=== PATIENT | male | born 1970 | race African-American/Black ===

== ENCOUNTER 2016-05-19 10:10 | Observation (INO) | payer OTHER ==
[~2016-05-19] VITALS: Ht 172.7 cm; Wt 84.0 kg
[~2016-05-19 10:10] MED LIST: CEPH-460 PO; FLUT50SP EACH NARE; LANTINJ SQ; LISI10TA3 PO; SERT-129 PO
[2016-05-19 10:12] VITALS: BP 154/92; PULSE 92; RESP 20; TEMP 97.7; O2SAT 97
[2016-05-19 11:45] LABS: BLOOD, URINE NEG (NEG); GLUCOSE,URINE 1000 mg/dL (NEG); KETONE, URINE NEG (NEG); NITRITE,URINE NEG (NEG); URINE COLOR COLORLESS (YELLW/STRAW)
[2016-05-19 11:46] LABS: AUTOMATED NEUTROPHIL # 2.8 TH/MM3 (1.8-7.7); BASOPHIL % 0.4 % (0.0-2.0); EOSINOPHIL % 0.4 % (0.0-4.0); HEMATOCRIT 38.2 % (39.0-51.0); LYMPH % 28.3 % (9.0-44.0); LYMPHOCYTE # 1.3 TH/MM3 (1.0-4.8); MEAN CELL VOLUME 78.4 FL (80.0-100.0); MEAN CORPUSCULAR HEMOGLOBIN 23.7 PG (27.0-34.0); MEAN CORPUSCULAR HGB CONC 30.3 % (32.0-36.0); MONO % 10.6 % (0.0-8.0); NEUT % 60.3 % (16.0-70.0); PLATELET COUNT 195 TH/MM3 (150-450); RED BLOOD COUNT 4.87 MIL/MM3 (4.50-5.90); RED CELL DISTRIBUTION WIDTH 15.4 % (11.6-17.2); WHITE BLOOD COUNT 4.7 TH/MM3 (4.0-11.0)
[2016-05-19 11:47] LABS: COMMENT (UR) CULT NOT INDICATED; CULTURE IF INDICATED CULT NOT INDICATED
[2016-05-19 11:49] LABS: HEMO FLAGS AUTO DIFF
[2016-05-19] MEDS ORDERED: LANTUS2P SQ (11:55)
[2016-05-19] MEDS ORDERED: CEPH-460 PO (11:55)
--- NOTE | 2016-05-19 11:58 | PD ---
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 Patient states last night he went out to eat at a seafood restaurant with some friends and thinks he may have gotten food poisoning. States this morning when he woke up he felt nauseous and has had two episodes of emesis and two episodes of diarrhea. States his stomach feels uneasy but denies abdominal pain. He states his blood glucose was too high for his machine to register this morning which is what prompted him to come to the emergency department. States he uses Lantus 25 units at night and sliding scale Novolog during the day. He has not eaten or drank today which is why he has not used any insulin so far. Denies fever, chills, cough or cold symptoms, dysuria. No recent travel or sick contacts. No other complaints. PFSH Past Medical History Anemia: Yes Depression: Yes Diabetes: Yes Past Surgical History Eye Surgery: Yes (retinal detachment OS OD cataract) Social History Alcohol Use: No Tobacco Use: No Substance Use: No Allergies-Medications (Allergen,Severity, Reaction): Coded Allergies: No Known Allergies (Unverified , 05/19/16) Reported Meds & Prescriptions Reported Meds & Active Scripts Active Keflex (Cephalexin) 500 Mg Cap 500 Mg PO Q6H Reported Keflex (Cephalexin) 500 Mg Cap 500 Mg PO Q6H Lantus Inj (Insulin Glargine) 1,000 Unit/10 Ml Vial 30 Units SQ HS Lantus Solostar Pen Inj (Insulin Glargine) 300 Unit/3 Ml Pen 29 Units SQ HS Fluticasone Nasal [place] 50 Mcg/Act Naspr 50 Mcg EACH NARE BID 50 mcg/spray Sertraline (Sertraline HCl) 100 Mg Tab 100 Mg PO DAILY Lisinopril 10 Mg Tab 10 Mg PO DAILY Review of Systems Except as stated in HPI: all other systems reviewed are Neg Physical Exam Narrative GENERAL: Well-nourished and well-developed pleasant patient in no acute distress who is nontoxic appearing. SKIN: Warm and dry. HEAD: Normocephalic and atraumatic. EYES: No injection, drainage, or hyphema noted. PERRLA. EOMI. ENT: No nasal drainage noted. Oropharynx is clear. NECK: Supple and the trachea is midline. CARDIOVASCULAR: Regular rate and rhythm. RESPIRATORY: Breath sounds are equal bilaterally with no accessory muscle use, wheezing, rhonchi, or crackles. GASTROINTESTINAL: Bowel sounds hyperactive. Abdomen is soft, non-tender, and nondistended. No rebound tenderness or guarding. Negative McBurney's point. Negative Swann's sign. MUSCULOSKELETAL: No obvious deformities, swelling, cyanosis, or ecchymosis is present throughout the upper and lower extremities. Patient has full range of motion without any signs of neurovascular compromise. NEUROLOGICAL: Awake, alert, and oriented. Normal speech and gait. Cranial nerves are grossly intact. Data Data Last Documented VS Vital Signs Date Time Temp Pulse Resp B/P Pulse Ox O2 Delivery O2 Flow Rate FiO2 05/19/16 10:12 97.7 92 20 154/92 97 Room Air Orders Complete Blood Count With Diff (05/19/16 10:39) Comprehensive Metabolic Panel (05/19/16 10:39) Urinalysis - C+S If Indicated (05/19/16 10:39) Iv Access Insert/Monitor (05/19/16 10:39) Oxygen Administration (05/19/16 10:39) Oximetry (05/19/16 10:39) Lipase (05/19/16 10:39) Labs Laboratory Tests Test 05/19/16 10:54 White Blood Count 4.7 TH/MM3 Red Blood Count 4.87 MIL/MM3 Hemoglobin 11.6 GM/DL Hematocrit 38.2 % Mean Corpuscular Volume 78.4 FL Mean Corpuscular Hemoglobin 23.7 PG Mean Corpuscular Hemoglobin 30.3 % Concent Red Cell Distribution Width 15.4 % Platelet Count 195 TH/MM3 Mean Platelet Volume 9.3 FL Neutrophils (%) (Auto) 60.3 % Lymphocytes (%) (Auto) 28.3 % Monocytes (%) (Auto) 10.6 % Eosinophils (%) (Auto) 0.4 % Basophils (%) (Auto) 0.4 % Neutrophils # (Auto) 2.8 TH/MM3 Lymphocytes # (Auto) 1.3 TH/MM3 Monocytes # (Auto) 0.5 TH/MM3 Eosinophils # (Auto) 0.0 TH/MM3 Basophils # (Auto) 0.0 TH/MM3 CBC Comment AUTO DIFF Urine Color COLORLESS Urine Turbidity CLEAR Urine pH 6.0 Urine Specific [place] 1.029 Urine Protein NEG mg/dL Urine Glucose (UA) 1000 mg/dL Urine Ketones NEG mg/dL Urine Occult Blood NEG Urine Nitrite NEG Urine Bilirubin NEG Urine Urobilinogen LESS THAN 2.0 MG/DL Urine Leukocyte Esterase NEG Urine RBC 1 /hpf Microscopic Urinalysis Comment CULT NOT INDICATED MDM Medical Decision Making Medical Screen Exam Complete: Yes Emergency Medical Condition: Yes Differential Diagnosis Gastroenteritis versus dehydration versus electrolyte abnormality versus colitis Narrative Course 46-year-old male presents to the emergency department for evaluation of nausea, vomiting and diarrhea for 1 day. Patient is afebrile, vital signs are stable. Abdominal examination is benign. Fingerstick glucose is too elevated for accucheck to pick up driver. IV is established, 2 L of fluid and Zofran 4 mg IV ordered. Patient will be transferred to a medical bed for further evaluation and management. Peyton Segura May 19, 2016 11:58
[2016-05-19 12:03] LABS: ANION GAP 7 MEQ/L (5-15)
[2016-05-19] MEDS ORDERED: SODIUM CHLOR 0.9% 1000 ML INJ 1,000 ML IV SCH ×2 (12:03)
[2016-05-19] MEDS ORDERED: ONDANSETRON HCL 4 MG/2 ML VIAL IVP ONE (12:15)
[2016-05-19] MEDS ORDERED: SODIUM CHLORIDE 0.9% FLUSH 5 ML FLUSH IVF PRN (12:15)
[2016-05-19 12:16] VITALS: O2SAT 99
[2016-05-19 12:21] LABS: ALKALINE PHOSPHATASE 150 U/L (45-117); ALT (GPT) 47 U/L (12-78); AST (GOT) 20 U/L (15-37); BICARBONATE 28.9 MEQ/L (21.0-32.0); BLOOD UREA NITROGEN 25 MG/DL (7-18); CHLORIDE 92 MEQ/L (98-107); GLOMERULAR FILTRATION RATE 49 ML/MIN (>89); POTASSIUM 4.7 MEQ/L (3.5-5.1); SODIUM (NA) 128 MEQ/L (136-145); TOTAL BILIRUBIN ADULT 0.5 MG/DL (0.2-1.0)
[2016-05-19 12:22] VITALS: BP 140/90; PULSE 81; RESP 20; O2SAT 98
[2016-05-19 12:29] LABS: PLATELET ESTIMATE SMEAR NORMAL (NORMAL); PLATELET MORPHOLOGY NORMAL (NORMAL); SCAN/DIFF AUTO DIFF CONFIRMED
[2016-05-19] MEDS ORDERED: INSULIN HUMAN REGULAR 1,000 UNITS/10 ML VIAL IV PUSH ONE (13:00)
[2016-05-19] MEDS ORDERED: ONDANSETRON HCL 4 MG/2 ML VIAL IV PUSH PRN (13:30)
--- NOTE | 2016-05-19 13:39 | PD ---
Data Data Last Documented VS Vital Signs Date Time Temp Pulse Resp B/P Pulse Ox O2 Delivery O2 Flow Rate FiO2 05/19/16 12:22 81 20 140/90 98 Room Air 05/19/16 10:12 97.7 Orders Complete Blood Count With Diff (05/19/16 10:39) Comprehensive Metabolic Panel (05/19/16 10:39) Urinalysis - C+S If Indicated (05/19/16 10:39) Iv Access Insert/Monitor (05/19/16 10:39) Oxygen Administration (05/19/16 10:39) Oximetry (05/19/16 10:39) Lipase (05/19/16 10:39) Ecg Monitoring (05/19/16 12:03) Ondansetron Inj (Zofran Inj) (05/19/16 12:15) Sodium Chlor 0.9% 1000 Ml Inj (Ns 1000 M (05/19/16 12:03) Sodium Chloride 0.9% Flush (Ns Flush) (05/19/16 12:15) Sodium Chlor 0.9% 1000 Ml Inj (Ns 1000 M (05/19/16 12:03) Insulin Human Regular Inj (Novolin R Inj (05/19/16 13:00) Diet Npo (05/19/16 Lunch) Vital Signs (Adult) LC.Q4H (05/19/16 13:16) Ondansetron Inj (Zofran Inj) (05/19/16 13:30) Basic Metabolic Panel (Bmp) (05/20/16 06:00) Sodium Chlor 0.9% 1000 Ml Inj (Ns 1000 M (05/19/16 14:00) Admit Order (Ed Use Only) (05/19/16 ) Labs Laboratory Tests Test 05/19/16 10:54 White Blood Count 4.7 TH/MM3 Red Blood Count 4.87 MIL/MM3 Hemoglobin 11.6 GM/DL Hematocrit 38.2 % Mean Corpuscular Volume 78.4 FL Mean Corpuscular Hemoglobin 23.7 PG Mean Corpuscular Hemoglobin 30.3 % Concent Red Cell Distribution Width 15.4 % Platelet Count 195 TH/MM3 Mean Platelet Volume 9.3 FL Neutrophils (%) (Auto) 60.3 % Lymphocytes (%) (Auto) 28.3 % Monocytes (%) (Auto) 10.6 % Eosinophils (%) (Auto) 0.4 % Basophils (%) (Auto) 0.4 % Neutrophils # (Auto) 2.8 TH/MM3 Lymphocytes # (Auto) 1.3 TH/MM3 Monocytes # (Auto) 0.5 TH/MM3 Eosinophils # (Auto) 0.0 TH/MM3 Basophils # (Auto) 0.0 TH/MM3 CBC Comment AUTO DIFF Differential Comment AUTO DIFF CONFIRMED Platelet Estimate NORMAL Platelet Morphology Comment NORMAL Urine Color COLORLESS Urine Turbidity CLEAR Urine pH 6.0 Urine Specific [place] 1.029 Urine Protein NEG mg/dL Urine Glucose (UA) 1000 mg/dL Urine Ketones NEG mg/dL Urine Occult Blood NEG Urine Nitrite NEG Urine Bilirubin NEG Urine Urobilinogen LESS THAN 2.0 MG/DL Urine Leukocyte Esterase NEG Urine RBC 1 /hpf Microscopic Urinalysis Comment CULT NOT INDICATED Sodium Level 128 MEQ/L Potassium Level 4.7 MEQ/L Chloride Level 92 MEQ/L Carbon Dioxide Level 28.9 MEQ/L Anion Gap 7 MEQ/L Blood Urea Nitrogen 25 MG/DL Creatinine 1.82 MG/DL Estimat Glomerular Filtration 49 ML/MIN Rate Random Glucose 913 MG/DL Calcium Level 9.2 MG/DL Total Bilirubin 0.5 MG/DL Aspartate Amino Transf 20 U/L (AST/SGOT) Alanine Aminotransferase 47 U/L (ALT/SGPT) Alkaline Phosphatase 150 U/L Total Protein 8.7 GM/DL Albumin 4.0 GM/DL Lipase 312 U/L MDM Supervised Visit with DEDE: Yes Narrative Course Assumed care patient from RAIN Segura. 46-year-old male with nausea vomiting. History of diabetes and visual impairment. Blood sugars been high for the past week or so. He's been under a lot of stress. Today started getting significant nausea and vomiting. Blood sugars in the 900s. No evidence of DKA. Was given IV fluid rehydration, Zofran , and IV insulin. Patient be admitted to the hospital for hyperglycemia, and further evaluation and management of his nausea and vomiting. He has a benign abdominal exam. I don't think he has appendicitis or other abdominal catastrophe. Diagnosis Primary Impression: Hyperglycemia Additional Impression: Nausea & vomiting Miguel Fabian MD May 19, 2016 13:39
[2016-05-19 14:15] VITALS: BP 161/91; PULSE 84; RESP 20; O2SAT 100
[2016-05-19] MEDS: SODIUM CHLOR 0.9% 1000 ML INJ 1,000 ML IV SCH ×2 (14:15→20:09)
--- NOTE | 2016-05-19 14:29 | HHI.HP ---
[facility] Physician Non-Staff Admission Diagnosis hyperglycemia Diagnoses: (1) Hyperglycemia Diagnosis: Principal (2) Nausea & vomiting Diagnosis: Principal Chief Complaint: nausea/ vomiting Travel History International Travel<30 Days: No Contact w/Intl Traveler <30 Da: No Traveled to Known Affected Are: No History of Present Illness patient is a 46 y/o male with history of diabetes mellitus who presented to ER with abdominal pain, nausea and vomiting. he says that after he had his supper last night he started to have some abdominal pain, nausea and vomiting. no diarrhea or fever. he says that he took his insulin last night but had three or four cans of coke last night. he says that his blood sugar is usually controlled. at the time of my evaluation he was in no acute distress. abdominal pain along with his nausea and vomiting has resolved. Review of Systems Constitutional: DENIES: Fever, Weight loss, Chills, Night Sweats Eyes: DENIES: Blurred vision, Diplopia, Vision loss, Double Vision Ears, nose, mouth, throat: DENIES: Tinnitus, Vertigo, Throat pain, Epistaxis Respiratory: DENIES: Apneas, Cough, Snoring, Wheezing, Hemoptysis, Sputum production, Shortness of breath Cardiovascular: DENIES: Chest pain, Palpitations, Syncope, Dyspnea on Exertion , PND, Lower Extremity Edema, Orthopnea, Claudication Gastrointestinal: COMPLAINS OF: Abdominal pain, Nausea, Vomiting, DENIES: Black stools, Bloody stools, Constipation, Diarrhea, Difficulty Swallowing, Anorexia Genitourinary: DENIES: Urinary frequency, Urgency, Hematuria, Dysuria Musculoskeletal: DENIES: Joint pain, Muscle aches, Stiffness, Joint Swelling Integumentary: DENIES: Rash Neurologic: DENIES: Abnormal gait, Headache, Localized weakness, Paresthesias, Seizures, Speech Problems, Tremor, Poor Balance Psychiatric: DENIES: Anxiety, Confusion, Mood changes, Depression, Hallucinations, Agitation, Suicidal Ideation, Homicidal Ideation, Delusions Past Family Social History Past Medical History diabetes mellitus legally blind Past Surgical History multiple ortho surgeries/ and eye surgeries. Reported Medications Lantus Inj (Insulin Glargine) 1,000 Unit/10 Ml Vial 30 Units SQ HS Lantus Solostar Pen Inj (Insulin Glargine) 300 Unit/3 Ml Pen 29 Units SQ HS Fluticasone Nasal [place] 50 Mcg/Act Naspr 50 Mcg EACH NARE BID 50 mcg/spray Sertraline (Sertraline HCl) 100 Mg Tab 100 Mg PO DAILY Lisinopril 10 Mg Tab 10 Mg PO DAILY Allergies: Coded Allergies: No Known Allergies (Unverified , 05/19/16) Active Ordered Medications Current Medications Ondansetron HCl 4 mg 4 mg ONCE ONCE IVP Last administered on 05/19/16 12:29; Start 05/19/16 at 12:15; Stop 05/19/16 at 12:16; Status DC Sodium Chloride (NS 1000 ml Inj) 1,000 ml @ 1,000 mls/hr Q1H IV Last administered on 05/19/16 12:29; Start 05/19/16 at 12:03; Stop 05/19/16 at 13:02; Status DC IV Flush 2 ml 2 ml UNSCH PRN IVF FLUSH AFTER USING IV ACCESS; Start 05/19/16 at 12:15 Sodium Chloride (NS 1000 ml Inj) 1,000 ml @ 1,000 mls/hr Q1H IV Last administered on 05/19/16 13:05; Start 05/19/16 at 12:03; Stop 05/19/16 at 13:02; Status DC Insulin Human Regular (NovoLIN R INJ) 10 units ONCE ONCE IV PUSH Last administered on 05/19/16 13:05; Start 05/19/16 at 13:00; Stop 05/19/16 at 13:01; Status DC Ondansetron HCl 4 mg 4 mg Q8H PRN IV PUSH NAUSEA; Start 05/19/16 at 13:30 Sodium Chloride (NS 1000 ml Inj) 1,000 ml @ 150 mls/hr Q6H40M IV Last administered on 05/19/16 14:15; Start 05/19/16 at 14:00 Family History diabetes in mother. Social History smokes marijuana- drinks occasionally. Physical Exam Vital Signs Vital Signs Date Time Temp Pulse Resp B/P Pulse Ox O2 Delivery O2 Flow Rate FiO2 05/19/16 14:15 84 20 161/91 100 Room Air 05/19/16 12:22 81 20 140/90 98 Room Air 05/19/16 12:16 99 Room Air 05/19/16 12:16 99 Room Air 05/19/16 10:12 97.7 92 20 154/92 97 Room Air Physical Exam GENERAL: This is a well-nourished, well-developed patient, in no apparent distress. SKIN: No rashes, ecchymoses or lesions. Cool and dry. HEAD: Atraumatic. Normocephalic. No temporal or scalp tenderness. ENT: Nose without bleeding, purulent drainage or septal hematoma. Throat without erythema, tonsillar hypertrophy or exudate. Uvula midline. Airway patent. NECK: Trachea midline. No JVD or lymphadenopathy. Supple, nontender, no meningeal signs. CARDIOVASCULAR: Regular rate and rhythm without murmurs, gallops, or rubs. RESPIRATORY: Clear to auscultation. Breath sounds equal bilaterally. No wheezes , rales, or rhonchi. GASTROINTESTINAL: Abdomen soft, non-tender, nondistended. No hepato-splenomegaly , or palpable masses. No guarding. MUSCULOSKELETAL: Extremities without clubbing, cyanosis, or edema. No joint tenderness, effusion, or edema noted. No calf tenderness. Negative Homans sign bilaterally. NEUROLOGICAL: Awake and alert. Cranial nerves II through XII intact. Motor and sensory grossly within normal limits. Five out of 5 muscle strength in all muscle groups. Normal speech. Laboratory Laboratory Tests Test 05/19/16 10:54 White Blood Count 4.7 Red Blood Count 4.87 Hemoglobin 11.6 Hematocrit 38.2 Mean Corpuscular Volume 78.4 Mean Corpuscular Hemoglobin 23.7 Mean Corpuscular Hemoglobin 30.3 Concent Red Cell Distribution Width 15.4 Platelet Count 195 Mean Platelet Volume 9.3 Neutrophils (%) (Auto) 60.3 Lymphocytes (%) (Auto) 28.3 Monocytes (%) (Auto) 10.6 Eosinophils (%) (Auto) 0.4 Basophils (%) (Auto) 0.4 Neutrophils # (Auto) 2.8 Lymphocytes # (Auto) 1.3 Monocytes # (Auto) 0.5 Eosinophils # (Auto) 0.0 Basophils # (Auto) 0.0 CBC Comment AUTO DIFF Differential Comment AUTO DIFF CONFIRMED Platelet Estimate NORMAL Platelet Morphology Comment NORMAL Urine Color COLORLESS Urine Turbidity CLEAR Urine pH 6.0 Urine Specific [place] 1.029 Urine Protein NEG Urine Glucose (UA) 1000 Urine Ketones NEG Urine Occult Blood NEG Urine Nitrite NEG Urine Bilirubin NEG Urine Urobilinogen LESS THAN 2.0 Urine Leukocyte Esterase NEG Urine RBC 1 Microscopic Urinalysis Comment CULT NOT INDICATED Sodium Level 128 Potassium Level 4.7 Chloride Level 92 Carbon Dioxide Level 28.9 Anion Gap 7 Blood Urea Nitrogen 25 Creatinine 1.82 Estimat Glomerular Filtration 49 Rate Random Glucose 913 Calcium Level 9.2 Total Bilirubin 0.5 Aspartate Amino Transf 20 (AST/SGOT) Alanine Aminotransferase 47 (ALT/SGPT) Alkaline Phosphatase 150 Total Protein 8.7 Albumin 4.0 Lipase 312 Result Diagram: 05/19/16 1054 05/19/16 1054 Assessment and Plan Assessment and Plan A/P - uncontrolled diabetes mellitus-due to noncompliance with the diet- patient is not acidotic blood sugar already improved after a dose of IV insulin-resume his long acting insulin and sliding scale coverage- continue aggressive IV hydration -acute kidney injury; start IV fluid and monitor renal function -hyponatremia due to hyperglycemia- continue IV fluid- monitor the level Discussed Condition With ER physician and the patient. Problem Qualifiers (1) Nausea & vomiting: Qualified Code: R11.2 - Nausea and vomiting, intractability of vomiting not specified, unspecified vomiting type Carmen Meneses MD May 19, 2016 14:29
[2016-05-19] MEDS ORDERED: DEXTROSE 50% IN WATER 50 ML VIAL(D50) IV PUSH PRN (14:30)
[2016-05-19] MEDS ORDERED: GLUCAGON 1 MG/ML VIAL OTHER PRN (14:30)
[2016-05-19 15:08] VITALS: BP 146/82; PULSE 78; RESP 20; O2SAT 100
[2016-05-19] MEDS: INSULIN ASPART SUPPLEMENTAL SCALE SQ SCH ×2 (16:00→20:09)
[2016-05-19 19:37] VITALS: BP 139/84; PULSE 78; RESP 18; TEMP 97.4; O2SAT 100
[2016-05-19] MEDS ORDERED: INSULIN DETEMIR 100 UNITS/ML VIAL SQ SCH (21:00)
[2016-05-20 00:01] VITALS: BP 139/77; PULSE 85; RESP 18; TEMP 97.4; O2SAT 99
[2016-05-20] MEDS: SODIUM CHLOR 0.9% 1000 ML INJ 1,000 ML IV SCH (03:20)
[2016-05-20] MEDS: INSULIN ASPART SUPPLEMENTAL SCALE SQ SCH ×2 (06:02→12:00)
[2016-05-20 06:08] VITALS: BP 140/79; PULSE 77; RESP 18; TEMP 97.5; O2SAT 98
[2016-05-20 07:32] VITALS: BP 139/84; PULSE 77; RESP 20; TEMP 97; O2SAT 96
[2016-05-20 08:30] LABS: BICARBONATE 25.9 MEQ/L (21.0-32.0); POTASSIUM 3.7 MEQ/L (3.5-5.1)
[2016-05-20] MEDS ORDERED: SERTRALINE HCL 100 MG TAB PO SCH (09:00)
[2016-05-20 12:14] VITALS: BP 161/86; PULSE 74; RESP 20; TEMP 97.6; O2SAT 98
--- NOTE | 2016-05-20 12:24 | HHI.PR ---
Subjective Remarks in no acute distress. no nausea, vomiting or abdominal pain. blood sugar has much improved. d/w the RN. Objective Vitals Vital Signs Date Time Temp Pulse Resp B/P Pulse Ox O2 Delivery O2 Flow Rate FiO2 05/20/16 12:14 97.6 74 20 161/86 98 05/20/16 07:32 97.0 77 20 139/84 96 05/20/16 06:08 97.5 77 18 140/79 98 05/20/16 00:01 97.4 85 18 139/77 99 05/19/16 19:37 97.4 78 18 139/84 100 05/19/16 15:08 78 20 146/82 100 Room Air 05/19/16 14:15 84 20 161/91 100 Room Air 05/19/16 12:22 81 20 140/90 98 Room Air I/O 05/19/16 05/19/16 05/19/16 05/20/16 05/20/16 05/20/16 07:00 15:00 23:00 07:00 15:00 23:00 Output Total 600 ml Balance -600 ml Output Urine Total 600 ml Result Diagram: 05/19/16 1054 05/20/16 0653 Objective Remarks GENERAL: This is a well-nourished, well-developed patient, in no apparent distress. CARDIOVASCULAR: Regular rate and regular rhythm without murmurs, gallops, or rubs. RESPIRATORY: Clear to auscultation. Breath sounds equal bilaterally. No wheezes , rales, or rhonchi. GASTROINTESTINAL: Abdomen soft, non-tender, nondistended. Normal, active bowel sounds MUSCULOSKELETAL: Extremities without clubbing, cyanosis, or edema. NEURO: Alert & Oriented x4 to person, place, time, situation. Moves all ext x4 Procedures none Medications and IVs Current Medications Ondansetron HCl 4 mg 4 mg ONCE ONCE IVP Last administered on 05/19/16 12:29; Start 05/19/16 at 12:15; Stop 05/19/16 at 12:16; Status DC Sodium Chloride (NS 1000 ml Inj) 1,000 ml @ 1,000 mls/hr Q1H IV Last administered on 05/19/16 12:29; Start 05/19/16 at 12:03; Stop 05/19/16 at 13:02; Status DC IV Flush 2 ml 2 ml UNSCH PRN IVF FLUSH AFTER USING IV ACCESS; Start 05/19/16 at 12:15 Sodium Chloride (NS 1000 ml Inj) 1,000 ml @ 1,000 mls/hr Q1H IV Last administered on 05/19/16 13:05; Start 05/19/16 at 12:03; Stop 05/19/16 at 13:02; Status DC Insulin Human Regular (NovoLIN R INJ) 10 units ONCE ONCE IV PUSH Last administered on 05/19/16 13:05; Start 05/19/16 at 13:00; Stop 05/19/16 at 13:01; Status DC Ondansetron HCl 4 mg 4 mg Q8H PRN IV PUSH NAUSEA; Start 05/19/16 at 13:30 Sodium Chloride (NS 1000 ml Inj) 1,000 ml @ 150 mls/hr Q6H40M IV Last administered on 05/20/16 03:20; Start 05/19/16 at 14:00 Sertraline HCl (Zoloft) 100 mg DAILY PO Last administered on 05/20/16 09:52; Start 05/20/16 at 09:00 Insulin Detemir (Levemir Inj) 29 units HS SQ Last administered on 05/19/16 20: 09; Start 05/19/16 at 21:00 Dextrose (D50w (Vial) Inj) 25 ml UNSCH PRN IV PUSH HYPOGLYCEMIA-SEE COMMENTS; Start 05/19/16 at 14:30 Glucagon (Glucagon Inj) 1 mg UNSCH PRN OTHER HYPOGLYCEMIA-SEE COMMENTS; Start 05/19/16 at 14:30 Insulin Aspart (NovoLOG SUPPLEMENTAL SCALE) 1 ACHS SLIDING SCALE SQ Last administered on 05/19/16 20:09; Start 05/19/16 at 16:00 A/P Assessment and Plan - uncontrolled diabetes mellitus-due to noncompliance with the diet- patient is not acidotic blood sugar has much improved -resumed his long acting insulin and sliding scale coverage- -acute kidney injury; resolved. -hyponatremia due to hyperglycemia- resolved. Discharge Planning dc home with f/u by pcp. see med list. d/w the patient and Carmen Rosado MD May 20, 2016 12:24
--- NOTE | 2016-05-20 12:25 | HHI.DS ---
Discharge Summary Admission Date May 19, 2016 at 13:21 Discharge Date: May 20, 2016 Admitting Diagnosis hyperglycemia (1) Hyperglycemia ICD Code: R73.9 Diagnosis: Principal (2) Nausea & vomiting ICD Code: R11.2 Diagnosis: Principal Procedures none Brief History - From Admission patient is a 46 y/o male with history of diabetes mellitus who presented to ER with abdominal pain, nausea and vomiting. he says that after he had his supper last night he started to have some abdominal pain, nausea and vomiting. no diarrhea or fever. he says that he took his insulin last night but had three or four cans of coke last night. he says that his blood sugar is usually controlled. at the time of my evaluation he was in no acute distress. abdominal pain along with his nausea and vomiting has resolved. CBC/BMP: 05/19/16 1054 05/20/16 0653 Significant Findings Laboratory Tests Test 05/19/16 05/20/16 10:54 06:53 Hemoglobin 11.6 GM/DL (13.0-17.0) Hematocrit 38.2 % (39.0-51.0) Mean Corpuscular Volume 78.4 FL (80.0-100.0) Mean Corpuscular Hemoglobin 23.7 PG (27.0-34.0) Mean Corpuscular Hemoglobin 30.3 % Concent (32.0-36.0) Monocytes (%) (Auto) 10.6 % (0.0-8.0) Urine Glucose (UA) 1000 mg/dL (NEG) Sodium Level 128 MEQ/L (136-145) Chloride Level 92 MEQ/L 108 MEQ/L (98-107) (98-107) Blood Urea Nitrogen 25 MG/DL (7-18) Creatinine 1.82 MG/DL (0.60-1.30) Estimat Glomerular Filtration 49 ML/MIN (>89) Rate Random Glucose 913 MG/DL 73 MG/DL (74-106) (74-106) Alkaline Phosphatase 150 U/L (45-117) Total Protein 8.7 GM/DL (6.4-8.2) Calcium Level 8.4 MG/DL (8.5-10.1) PE at Discharge GENERAL: This is a well-nourished, well-developed patient, in no apparent distress. CARDIOVASCULAR: Regular rate and regular rhythm without murmurs, gallops, or rubs. RESPIRATORY: Clear to auscultation. Breath sounds equal bilaterally. No wheezes , rales, or rhonchi. GASTROINTESTINAL: Abdomen soft, non-tender, nondistended. Normal, active bowel sounds MUSCULOSKELETAL: Extremities without clubbing, cyanosis, or edema. NEURO: Alert & Oriented x4 to person, place, time, situation. Moves all ext x4 Hospital Course - uncontrolled diabetes mellitus-due to noncompliance with the diet- patient is not acidotic blood sugar has much improved -resumed his long acting insulin and sliding scale coverage- -acute kidney injury; resolved. -hyponatremia due to hyperglycemia- resolved. Pt Condition on Discharge: Good Discharge Disposition: Discharge Home Discharge Time: <= 30 minutes Discharge Instructions DIET: Follow Instructions for: Diabetic Diet Activities you can perform: Regular-No Restrictions Follow up Referrals: PCP Follow-up Continued Medications: Fluticasone Nasal [place] (Fluticasone Nasal [place]) 50 Mcg/Act Naspr 50 MCG EACH NARE BID 50 mcg/spray Allergy Management #1 Ref 0 BOTTLE Insulin Glargine Inj (Lantus Inj) 1,000 Unit/10 Ml Vial 30 UNITS SQ HS Blood Sugar Management Ref 0 VIAL Sertraline (Sertraline) 100 Mg Tab 100 MG PO DAILY #30 Ref 0 TAB Discontinued Medications: Cephalexin (Keflex) 500 Mg Cap 500 MG PO Q6H Infection #28 CAP Cephalexin (Keflex) 500 Mg Cap 500 MG PO Q6H Infection Ref 0 CAP Insulin Glargine Inj (Lantus Solostar Pen Inj) 300 Unit/3 Ml Pen 29 UNITS SQ HS Blood Sugar Management Ref 0 PEN Lisinopril (Lisinopril) 10 Mg Tab 10 MG PO DAILY #30 Ref 0 TAB Carmen Meneses MD May 20, 2016 12:25
--- NOTE | 2016-05-20 12:25 | HHI.DCPOC ---
Discharge Care Plan Diagnosis: (1) Nausea & vomiting (2) Hyperglycemia Your Health Problems Are: Fluctuating Blood Sugars Goals to Promote Your Health * To prevent worsening of your condition and complications * To maintain your health at the optimal level Directions to Meet Your Goals Take your medications as prescribed Follow your dietary instruction Follow activity as directed Keep your appointments as scheduled Take your immunizations and boosters as scheduled If your symptoms worsen call your PCP, if no PCP go to Urgent Care Center or Emergency Room Smoking is Dangerous to Your Health. Avoid second hand smoke Call the 24-hour hour crisis hotline for domestic abuse at Carmen Meneses MD May 20, 2016 12:25
== END 2016-05-20 15:21 | disposition home or self-care (01) ==
LOC: NEPA 10:10 → NEDA 13:21 → NEPFCDU 15:51
PROVIDERS: ADMIT Internal Medicine; ATTEND Internal Medicine
DX: E11.65 Type 2 diabetes mellitus with hyperglycemia (principal); R11.2 Nausea with vomiting, unspecified; R19.7 Diarrhea, unspecified; N17.9 Acute kidney failure, unspecified; E87.1 Hypo-osmolality and hyponatremia; D64.9 Anemia, unspecified; F32.9 Major depressive disorder, single episode, unspecified; Z91.19 Patient's noncompliance with other medical treatment and regimen; Z79.4 Long term (current) use of insulin; Z83.3 Family history of diabetes mellitus
CPT/HCPCS: 80048; 80053; 81001; 82948; 83690; 85025; 96361; 96374; 96375; 99284; G0378; J1815; J2405; J7030